=== PATIENT | female | born 2000 | race Hispanic/Latino ===

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

== ENCOUNTER 2018-12-13 20:53 | Emergency (ER) | payer SELFPAY ==
[2018-12-13] MEDS ORDERED: Sodium Chloride 0.9% 1,000 ML ONE (21:20)
[2018-12-13] MEDS ORDERED: Metoclopramide HCl 10 MG/2 ML VIAL ONE (21:20)
[2018-12-13] MEDS ORDERED: diphenhydrAMINE 50 MG/ML VIAL ONE (21:20)
== END 2018-12-13 22:15 | disposition home or self-care (01) ==
LOC: NAV ERS 20:53
DX: G43.909 Migraine, unspecified, not intractable, without status migrainosus (principal); F41.9 Anxiety disorder, unspecified; Z79.899 Other long term (current) drug therapy
CPT/HCPCS: 96361; 96374; 96375; J1200; J2765; J7050

== ENCOUNTER 2019-09-07 20:11 | Emergency (ER) | payer SELFPAY ==
[2019-09-07] MEDS ORDERED: Sodium Chloride 0.9% 1,000 ML ONE (20:56)
[2019-09-07] MEDS ORDERED: Ketorolac Tromethamine 30 MG/ML VIAL ONE (20:56)
[2019-09-07] MEDS ORDERED: Metoclopramide HCl 10 MG/2 ML VIAL ONE (20:56)
[2019-09-07] MEDS ORDERED: Ondansetron PF 4 MG/2 ML Vial ONE (20:56)
[2019-09-07] MEDS ORDERED: diphenhydrAMINE 50 MG/ML VIAL ONE (20:56)
== END 2019-09-07 21:49 | disposition home or self-care (01) ==
LOC: NAV ERS 20:11
DX: R51 Headache (principal); F41.9 Anxiety disorder, unspecified
CPT/HCPCS: 96365; 96375; J1200; J1885; J2405; J2765; J7050

== ENCOUNTER 2021-05-16 16:24 | Emergency (ER) | payer MEDICAID, SELFPAY | END 2021-05-16 16:52 | disposition home or self-care (01) | LOC: NAV ERS 16:24 | DX: H00.016 Hordeolum externum left eye, unspecified eyelid (principal); M41.9 Scoliosis, unspecified | CPT/HCPCS: 99283 ==

== ENCOUNTER 2022-02-06 15:31 | Emergency (ER) | payer SELFPAY | END 2022-02-06 15:59 | disposition home or self-care (01) | LOC: NAV ERS 15:31 | DX: M25.562 Pain in left knee (principal); G43.909 Migraine, unspecified, not intractable, without status migrainosus | CPT/HCPCS: 99283 ==

== ENCOUNTER 2022-05-17 16:20 | Emergency (ER) | payer SELFPAY ==
[2022-05-17] MEDS ORDERED: Ibuprofen 200 MG TAB ONE (16:46)
== END 2022-05-17 17:08 | disposition home or self-care (01) ==
LOC: NAV ERS 16:20
DX: J02.0 Streptococcal pharyngitis (principal); G43.909 Migraine, unspecified, not intractable, without status migrainosus
CPT/HCPCS: 87430; 99283

== ENCOUNTER 2023-08-23 11:36 | Emergency (ER) | payer BC ==
[2023-08-23 12:55] LABS: #Basophils 0.2 thou/uL (0.0-0.2); #Eosinphils 0.2 thou/uL (0.0-0.7); #Lymphocytes 3.6 thou/uL (1.20-3.40); #Monocytes 0.6 thou/uL (0.11-0.59); #Neutrophils 5.6 thou/uL (1.40-6.50); %Basophils 1.5 % (0.0-1.0); %Eosinophils 1.5 % (0.0-10.0); %Lymphocytes 35.9 % (21.0-51.0); %Monocytes 5.8 % (0.0-10.0); %Neutrophils 55.2 % (42.0-75.0); Mean Corpuscular HGB CONC 32.6 g/dL (32.0-36.0); Mean Corpuscular Hemoglobin 29.3 pg (27.0-31.0); Mean Platelet Volume 6.8 fL (7.4-10.4); Platelet Count 383 10x3/uL (130-400); RBC Distribution Width 12.1 % (11.5-14.5); Red Blood Cell (RBC) Count 4.78 mill/uL (4.20-5.40); White Blood Cell (WBC) Count 10.1 10x3/uL (4.8-10.8)
[2023-08-23 13:08] LABS: Anion Gap 13 mmol/L (10-20); BUN (Urea Nitrogen) 11 mg/dL (7.0-18.7); Calc. Creatinine Clearance 0 mL/min (70-130); Calcium 9.1 mg/dL (7.8-10.44); Carbon Dioxide 24 mmol/L (22-29); Chloride 104 mmol/L (98-107); Estimated GFR 111; Glucose 108 mg/dL (70-105); Potassium 3.8 mmol/L (3.5-5.1); Sodium 137 mmol/L (136-145)
[2023-08-23 13:12] LABS: Troponin I Less than 0.010 ng/mL (< 0.028)
== END 2023-08-23 13:35 | disposition home or self-care (01) ==
LOC: NAV ERS 11:36
DX: F41.9 Anxiety disorder, unspecified (principal); R42 Dizziness and giddiness
CPT/HCPCS: 36416; 71045; 80048; 84484; 85025; 93005

== ENCOUNTER 2024-02-03 22:38 | Emergency (ER) | payer BC ==
[~2024-02-03 22:38] MED LIST: Iopamidol 370 76% 100 ML VIAL ONE
[2024-02-03] MEDS ORDERED: Morphine 4 MG/ML VIAL ONE (22:58)
[2024-02-03] MEDS ORDERED: Ondansetron PF 4 MG/2 ML Vial ONE (22:58)
[2024-02-03 23:21] LABS: #Basophils 0.1 thou/uL (0.0-0.2); #Eosinphils 0.1 thou/uL (0.0-0.7); #Lymphocytes 2.9 thou/uL (1.20-3.40); #Monocytes 0.6 thou/uL (0.11-0.59); #Neutrophils 5.4 thou/uL (1.40-6.50); %Basophils 0.9 % (0.0-1.0); %Lymphocytes 32.2 % (21.0-51.0); %Monocytes 6.3 % (0.0-10.0); %Neutrophils 59.6 % (42.0-75.0); Hematocrit 40.6 % (36.0-47.0); Hemoglobin 13.4 g/dL (12.0-16.0); Mean Corpuscular HGB CONC 32.9 g/dL (32.0-36.0); Mean Corpuscular Hemoglobin 28.6 pg (27.0-31.0); Mean Corpuscular Volume 86.9 fl (78.0-98.0); Mean Platelet Volume 6.7 fL (7.4-10.4); Platelet Count 328 10x3/uL (130-400); Red Blood Cell (RBC) Count 4.67 mill/uL (4.20-5.40)
[2024-02-03 23:25] LABS: Pregs Control Bar Appear? YES (CONTROL BAR)
[2024-02-03 23:28] LABS: BHCG - Serum Negative (NEGATIVE)
[2024-02-03 23:36] LABS: ALT (SGPT) 50 U/L (8-55); AST (SGOT) 35 U/L (5-34); Albumin 4.4 g/dL (3.5-5.0); Alkaline Phosphatase 64 U/L (40-110); Anion Gap 14 mmol/L (10-20); BUN (Urea Nitrogen) 16 mg/dL (7.0-18.7); Bilirubin, Total 0.9 mg/dL (0.2-1.2); Calc. Creatinine Clearance 0 mL/min (70-130); Calcium 9.8 mg/dL (7.8-10.44); Carbon Dioxide 24 mmol/L (22-29); Chloride 105 mmol/L (98-107); Estimated GFR 83; Globulin 3.5 g/dL (2.4-3.5); Glucose 120 mg/dL (70-105); Potassium 3.3 mmol/L (3.5-5.1); Protein, Total 7.9 g/dL (6.0-8.3); Sodium 140 mmol/L (136-145)
== END 2024-02-04 00:55 | disposition home or self-care (01) ==
LOC: NAV ERS 22:38
DX: S16.1XXA Strain of muscle, fascia and tendon at neck level, initial encounter (principal); M25.511 Pain in right shoulder; V43.62XA Car passenger injured in collision with other type car in traffic accident, initial encounter
CPT/HCPCS: 70450; 70498; 71045; 80053; 84703; 85025; 94760; 96374; 96375; J2270; J2405; Q9967

== ENCOUNTER 2025-04-20 19:38 | Emergency (ER) | payer BC ==
[2025-04-20] MEDS ORDERED: Ondansetron PF 4 MG/2 ML Vial ONE (20:03)
[2025-04-20] MEDS ORDERED: Pantoprazole 40 MG VIAL ONE (20:03)
[2025-04-20 20:37] LABS: BHCG - Serum Negative (NEGATIVE); Pregs Control Bar Appear? YES (CONTROL BAR)
[2025-04-20 20:44] LABS: Hematocrit 43.2 % (36.0-47.0); Hemoglobin 15.1 g/dL (12.0-16.0); Mean Corpuscular Hemoglobin 29.8 pg (27.0-31.0); Mean Corpuscular Volume 85.3 fl (78.0-98.0); Platelet Count 425 10x3/uL (130-400); Red Blood Cell (RBC) Count 5.06 mill/uL (4.20-5.40); White Blood Cell (WBC) Count 17.0 10x3/uL (4.8-10.8)
[2025-04-20 20:46] LABS: ALT (SGPT) 22 U/L (Less than 34); AST (SGOT) 37 U/L (11-34); Albumin 4.4 g/dL (3.1-4.5); Alkaline Phosphatase 52 U/L (40-110); Anion Gap 16 mmol/L (10-20); BUN (Urea Nitrogen) 18 mg/dL (7.0-18.7); Bilirubin, Total 0.9 mg/dL (0.3-1.2); Calc. Creatinine Clearance 0 mL/min (70-130); Calcium 9.2 mg/dL (7.8-10.44); Carbon Dioxide 24 mmol/L (22-29); Chloride 103 mmol/L (98-107); Globulin 3.7 g/dL (2.4-3.5); Glucose 114 mg/dL (70-105); Lipase 44 U/L (8-78); Potassium 3.8 mmol/L (3.5-5.1); Sodium 139 mmol/L (136-145)
[2025-04-20] MEDS ORDERED: Sucralfate 1 GM TAB ONE (20:57)
[2025-04-20] MEDS ORDERED: Mag-Al Plus 1200/1200/120 MG (30 mL) UDCUP ONE (20:57)
[2025-04-20] MEDS ORDERED: Lidocaine Viscous Sol 2% 15 ml UD Cup ONE (20:58)
[2025-04-20 20:59] LABS: MDiff Complete? YES; Platelet Adequacy Comment Appears Increased
== END 2025-04-20 22:05 | disposition home or self-care (01) ==
LOC: NAV ERS 19:38
DX: K29.00 Acute gastritis without bleeding (principal)
CPT/HCPCS: 80053; 83690; 84703; 85025; 96361; 96374; 96375; J2405; J2470; J7030